=== PATIENT | female | born 1995 | race Caucasian/White ===

== ENCOUNTER 2016-05-20 18:55 | Emergency (ER) | payer OTHER ==
[~2016-05-20] VITALS: Ht 167.6 cm; Wt 101.0 kg
[~2016-05-20 18:55] MED LIST: ASCO100C2 PO; NRN600 PO; NRT75 PO
[2016-05-20 19:42] VITALS: TEMP 36.6; Ht 167.6 cm; Wt 101.0 kg
[2016-05-20] MEDS ORDERED: TRAMADOL HCL 50 MG TAB PO STA (20:05)
[2016-05-20] MEDS ORDERED: GABA-113 PO (20:16)
[2016-05-20] MEDS ORDERED: ZINC1CAP PO (20:18)
[2016-05-20] MEDS ORDERED: MELA1CAP10 PO (20:20)
--- NOTE | 2016-05-20 20:58 | DIAGNOSTIC IMAGING REPORT ---
RIGHT HIP UNILATERAL 2 VIEWS CLINICAL HISTORY: Right hip pain following fall. COMPARISON: None FINDINGS: Alignment of the right hip is anatomic. There is no acute fracture. Joint space is preserved. A few sclerotic foci within the right pelvis are likely benign. IMPRESSION: No acute fracture or dislocation of the right hip. Electronically signed by: See Varela M.D. 05/20/2016 8:57 PM Dictated Date/Time: 05/20/2016 8:57 PM
--- NOTE | 2016-05-20 21:00 | DIAGNOSTIC IMAGING REPORT ---
RIGHT FEMUR 2 VIEWS ROUTINE CLINICAL HISTORY: fall off horse; R hip to foot pain. COMPARISON: None FINDINGS: No acute fracture of the right femur is identified. There is a small right knee joint effusion. An intrauterine device within the pelvis is incidentally noted. IMPRESSION: 1. No acute fracture of the right femur. 2. Small right knee joint effusion. Electronically signed by: See Varela M.D. 05/20/2016 8:59 PM Dictated Date/Time: 05/20/2016 8:58 PM
--- NOTE | 2016-05-20 21:01 | DIAGNOSTIC IMAGING REPORT ---
RIGHT TIBIA/FIBULA 2 VIEWS ROUTINE CLINICAL HISTORY: Right lower extremity pain following fall. COMPARISON: None FINDINGS: There is no acute fracture of the right tibia or fibula. Alignment of the right knee and ankle is anatomic. IMPRESSION: No acute fracture of the right tibia or fibula. Electronically signed by: See Varela M.D. 05/20/2016 9:00 PM Dictated Date/Time: 05/20/2016 9:00 PM
--- NOTE | 2016-05-20 21:02 | DIAGNOSTIC IMAGING REPORT ---
RIGHT ANKLE MIN 3 VIEWS ROUTINE CLINICAL HISTORY: Right lower extremity pain following fall. COMPARISON: None FINDINGS: Alignment of the right ankle is anatomic. Talar dome is intact. There is no acute fracture. There is minimal plantar calcaneal spurring. IMPRESSION: No acute fracture or dislocation of the right ankle. Electronically signed by: See Varela M.D. 05/20/2016 9:01 PM Dictated Date/Time: 05/20/2016 9:00 PM
--- NOTE | 2016-05-20 21:02 | DIAGNOSTIC IMAGING REPORT ---
RIGHT KNEE 3 VIEWS CLINICAL HISTORY: Right lower extremity pain following fall. COMPARISON: None FINDINGS: Alignment of the right knee is anatomic. There is a small right knee joint effusion. No acute fracture is identified. IMPRESSION: 1. No acute fracture. 2. Small right knee joint effusion. Electronically signed by: See Varela M.D. 05/20/2016 9:01 PM Dictated Date/Time: 05/20/2016 8:59 PM
--- NOTE | 2016-05-20 21:03 | DIAGNOSTIC IMAGING REPORT ---
RIGHT FOOT MIN 3 VIEWS ROUTINE CLINICAL HISTORY: Right lower extremity pain following fall. COMPARISON: None FINDINGS: Alignment of the right foot is anatomic. The tarsometatarsal joints are intact. There is minimal plantar calcaneal spurring. There is no acute fracture within the right foot. IMPRESSION: No acute fracture or dislocation of the right foot. Electronically signed by: See Varela M.D. 05/20/2016 9:02 PM Dictated Date/Time: 05/20/2016 9:01 PM
[2016-05-20] MEDS ORDERED: TRAMADOL HCL 50 MG HOME PACK PO ONE (21:30)
[2016-05-20] MEDS ORDERED: TRAM-10 PO (21:31)
[2016-05-20 21:50] VITALS: BP 133/90; PULSE 100; O2SAT 99
--- NOTE | 2016-05-21 09:21 | EMERGENCY ROOM VISIT NOTE ---
ED Visit Note The pharmacy called 9:20 AM 05/21/16. The patient takes nortriptyline. She had been prescribed tramadol. There is an interaction of increased risk of serotonin syndrome and seizure. The tramadol prescription was canceled. Unfortunately, the patient does list allergies to oxycodone and codeine. At this time, I'm not comfortable prescribing a narcotic given her allergies. Additionally, the visit note from yesterday has not yet been completed for additional details. I recommended to the pharmacist that the patient return to the ER or she has any worsening or uncontrolled pain.
--- NOTE | 2016-05-21 21:12 | EMERGENCY ROOM VISIT NOTE ---
ED Visit Note First contact with patient: 19:51 Chief Complaint: Right knee pain. History of Present Illness: Ms. Whitfield is a 20-year-old white female who is brought into the ED via wheelchair accompanied by female friend complaining of right knee pain. Patient reports less than an hour ago she was taking a horse riding lesson and was attempting to jump over a barrier. She reports though horse stopped would not jump over the area barrier. She reports for was stuck in a stirrup and she fell off of work and twisted her right leg. She reports this that time she has been having severe pain in the right knee with paresthesias in the right toe. As I was assessing the patient she then reports that she was having pain throughout the entire right leg from her hip to her foot. She describes her overall sensation as a sharp discomfort and rates her discomfort 10/10. Her pain is nonradiating. All movements of the leg and palpation of the entire leg increases her discomfort. She has not had any medications for pain prior to arrival at the hospital. Associated with her pain she continues to report that she has paresthesias to the toes. She denies neck pain, back pain, left lower extremity pain, previous significant injuries or surgeries on any areas of the right lower extremity. Review of Systems: As noted above in history of present illness. Past Medical History: Asthma, GERD, gastric ulcers, status post granuloma removal. Current Medications: Melatonin, zinc, gabapentin, nortriptyline, vitamin C. Allergies to Medications: Oxycodone, codeine, IV contrast. Social History: Patient is currently employed; she lives with her parents and feels safe in her home environment; she denies tobacco use and admits to alcohol use. Physical Examination: Vital Signs: Date Time Temp Pulse Resp B/P Pulse Ox O2 Delivery O2 Flow Rate FiO2 05/20/16 21:50 100 18 133/90 99 05/20/16 19:42 36.6 102 18 131/89 98 Room Air GENERAL: 20-year-old female in mild to moderate distress due to pain, nontoxic- appearing, afebrile and hemodynamically stable. NEUROLOGICAL: Awake, alert and oriented to person, place and time. Answering questions appropriately and following commands. Good hand eye coordination. No focal motor or sensory deficits. SKIN: Warm, dry and pink. No soft tissue trauma noted. HEENT: Atraumatic and normocephalic. BACK: No tenderness over the bony thoracic or lumbar spine. No step-offs, swelling, bony crepitus or ecchymosis. No CVA tenderness. THORAX: Lungs sounds are clear to auscultation and equal bilaterally with symmetrical chest wall. ABDOMEN: Flat, soft and nontender. Positive bowel sounds in all quadrants. No guarding, rigidity or organomegaly. RIGHT LOWER EXTREMITY: No gross bony deformity. Initially on my examination patient had tenderness in the hip but not the pelvis, throughout the thigh, knee , lower leg, ankle or foot. I was not really able to assess her because she refused to allow me to touch her and would not move any of her joints. After pain medications and x-ray she did allow me to examine her leg and she had mild tenderness over the greater trochanter. There is no abnormal rotation or shortening of the extremity. She has tenderness over the mid femur without bony deformity, bony crepitus, swelling or ecchymosis. Diffuse tenderness throughout the knee. Decreased range of motion to approximately 90 of flexion but was able to fully extend her knee. There was moderate tenderness over the distal tibia but not fibula. She also had moderate tenderness over the medial and lateral epicondyles. She had no bony deformity, crepitus, swelling or ecchymosis. Distal pulses were intact. She was able to wiggle her toes and after her x-ray she was able to note me touching her toes. ED Course: Patient is assessed as noted above. Patient was given ice and 50 mg of Ultram by mouth for pain; she reported that she was allergic to codeine and oxycodone but then reported she has taken Percocet in the past and had no reaction. Her rash with these medications was hives so narcotics were held. Right Hip X-Ray: Was read by myself and the radiologist showing no acute fractures or dislocations. Right Femur X-Rays: Was read by myself and the radiologist showing no acute fractures. Right Knee X-Rays: Was read by myself and the radiologist showing no fractures or dislocations. Radiologist noted a small joint effusion. Right Tibia/Fibula X-Rays: Was read by myself and the radiologist showing no acute fractures. Right Ankle X-Rays: Was read by myself and the radiologist showing no acute fractures or dislocations. Right Foot X-Rays: Was read by myself and the radiologist showing no acute fractures or dislocations. Patient was placed in a knee immobilizer and a ankle gel splint; she was instructed on nonweight bearing crutch use. Patient was educated about tonight's findings and instructed on her treatment plan; she verbalizes understanding and agreement with this plan. Clinical Impression: Right lower leg pain. Disposition: Patient was discharged home in stable condition accompanied by female friends; prior to departure she was reassessed and subjectively reported she was feeling slightly better and rated her discomfort 9/10. Plan: Comfort measures were discussed with the patient including rest, ice, mobilizer/ ankle splint and nonweightbearing crutches use. Patient was placed on a sliding pain medication scale of ibuprofen, acetaminophen and Ultram. Patient was encouraged to follow-up with her primary care provider for recheck in 3-4 days. Patient was encouraged return the ED for worsening/uncontrolled pain, uncontrolled swelling, leg weakness/numbness/tingling or any new/concerning symptoms.
== END 2016-05-20 21:51 | disposition home or self-care (01) ==
LOC: C.EDB 18:56 → C.EDD 21:51
DX: M79.604 Pain in right leg (principal); K21.9 Gastro-esophageal reflux disease without esophagitis; J45.909 Unspecified asthma, uncomplicated; Z87.11 Personal history of peptic ulcer disease; Z79.899 Other long term (current) drug therapy; Z88.5 Allergy status to narcotic agent; Z91.041 Radiographic dye allergy status

== ENCOUNTER → 2017-03-05 | Outpatient (CLI) | payer OTHER ==
[~2017-03-05] MED LIST changes: +GABA-113 PO; +MELA1CAP10 PO; -NRN600 PO; +ZINC1CAP PO
--- NOTE | 2017-03-05 15:25 | DIAGNOSTIC IMAGING REPORT ---
ULTRASOUND R VENOUS DOPP LOWER EXT UNILAT CLINICAL HISTORY: Right leg pain and swelling COMPARISON STUDY: No previous studies for comparison. FINDINGS: Real-time and color flow Doppler imaging were performed. Flow was seen within the femoral, popliteal and calf veins with no intraluminal thrombus demonstrated. The saphenous vein is patent. IMPRESSION: No evidence of right lower extremity DVT. Electronically signed by: Aníbal Frazier M.D. 03/05/2017 3:24 PM Dictated Date/Time: 03/05/2017 3:24 PM
== END | disposition home or self-care (01) ==
LOC: C.ULTRBC 14:53
PROVIDERS: ATTEND Orthopaedic Surgery
DX: M79.604 Pain in right leg (principal)

== ENCOUNTER 2017-04-25 14:30 | Emergency (ER) | payer OTHER ==
[~2017-04-25] VITALS: Ht 167.6 cm; Wt 102.0 kg
[2017-04-25 14:31] VITALS: TEMP 37.1; Ht 167.6 cm; Wt 102.0 kg
[2017-04-25] MEDS ORDERED: ABL/15 PO (15:07)
[2017-04-25] MEDS ORDERED: PROPARACAINE HCL 0.5% OP SOLN 15 ML BTL OP STA (15:15)
[2017-04-25] MEDS ORDERED: PROPARACAINE HCL 0.5% OP SOLN 15 ML BTL ONE (15:18)
[2017-04-25] MEDS ORDERED: CIPR0.3S OP (15:46)
[2017-04-25] MEDS ORDERED: HYDR-5688 PO (15:46)
[2017-04-25 16:05] VITALS: BP 118/76; PULSE 93; O2SAT 99
--- NOTE | 2017-04-25 20:03 | EMERGENCY ROOM VISIT NOTE ---
ED Visit Note First contact with patient: 15:10 Chief Complaint: Right eye pain and watering. History of Present Illness: Ms. Whitfield is a 21-year-old white female who ambulates into the ED accompanied by male friend complaining of right eye pain and tearing. Historically patient denies any previous significant eye injury or diseases. She does wear contact lenses. Patient reports approximately 1.5 hours ago, after having her haircut, she started developing a burning sensation in the right eye. Since that time the pain has been constant. She rates her discomfort 8/10. The pain is nonradiating. Her pain worsens with exposure to bright light. She has not identified any alleviating factors related to the pain. She has not taken medications for pain prior to arrival at the hospital. Associated with her pain she has had light sensitivity and tearing of clear tears. She denies any foreign body sensation or recent trauma to the eye. Additionally she denies headache, visual changes, flashing lights, halos, double vision nausea, vomiting. Review of Systems: As noted above in history of present illness. 8 body systems were reviewed and found to be negative as noted above. Past Medical History: Asthma, gastric ulcers, status post right knee and nasal surgery. Current Medications: Nortriptyline, Neurontin, zinc, Abilify, vitamin C. Allergies to Medications: Codeine. Social History: Patient is currently employed; she feels safe in her home environment; she denies tobacco and alcohol use. Physical Examination: Vital Signs: Date Time Temp Pulse Resp B/P (MAP) Pulse Ox O2 Delivery O2 Flow Rate FiO2 04/25/17 16:05 93 16 118/76 99 04/25/17 14:31 37.1 93 16 118/76 99 Room Air GENERAL: 21-year-old female in mild to moderate distress due to pain, nontoxic- appearing, afebrile and hemodynamically stable. NEUROLOGICAL: Awake, alert and oriented to person, place and time. Answering questions appropriately and following commands. Normal gait. Good hand eye coordination. SKIN: Warm, dry and pink. No soft tissue eruptions or trauma noted. HEENT: Atraumatic and normocephalic. No foreign bodies were identified under the eyelids are embedded in the cornea. The anterior chamber is clear. Positive light sensitivity. PERRLA. EOMI without nystagmus. Sclera injected and conjunctiva pink with drainage of clear tears. Slit-lamp examination shows no foreign bodies. 2 corneal abrasions one at the 2 o'clock position and one at the 7 o'clock position. Visual acuity: Right 20/200 without contact lenses, Left 20/20 with contact lenses. ED Course: Patient is assessed as noted above. Patient's medication list was reviewed. Patient was offered pain medication and refused. 2 drops of Alcaine was used to anesthetize the right eye for examination. Prior to discharge to additional drops of Alcaine was used to anesthetize the eyes prior to discharge. Patient was educated about today's findings and instructed on her treatment plan ; she verbalized understanding and agreement with this plan. Clinical Impression: 2 left corneal abrasions. Decision-Making: Initially my differential diagnosis I considered corneal abrasion, foreign body, conjunctivitis, cellulitis and other causes. Disposition: Patient discharged home in stable condition accompanied by her boyfriend; prior to departure she was reassessed and subjectively reported she was feeling better. Plan: Patient was prescribed Ciloxan 2 drops every 4 hours while awake for 5 days. Cool compresses around the eye were discussed with the patient. Patient was placed on a sliding pain medication scale of ibuprofen, acetaminophen and Alborn; she was warned about appropriate narcotic use and precautions and her name was checked in the state database and no red flags were noted. Patient was encouraged not to use contacts for the next 10 days and then use a new pair of contacts at that time. Patient was encouraged to follow-up with ophthalmology or return to the ED in 36 -48 hours for recheck. Patient was encouraged to return the ED sooner for worsening/uncontrolled pain, headaches, visual changes, fevers, vomiting or any new/concerning symptoms.
== END 2017-04-25 16:05 | disposition home or self-care (01) ==
LOC: C.EDB 14:31 → C.EDD 16:05
DX: S05.02XA Injury of conjunctiva and corneal abrasion without foreign body, left eye, initial encounter (principal); X58.XXXA Exposure to other specified factors, initial encounter; Y92.9 Unspecified place or not applicable; J45.909 Unspecified asthma, uncomplicated; K25.9 Gastric ulcer, unspecified as acute or chronic, without hemorrhage or perforation; Z79.899 Other long term (current) drug therapy

== ENCOUNTER 2017-06-17 08:33 | Emergency (ER) | payer OTHER ==
[~2017-06-17] VITALS: Ht 167.6 cm; Wt 101.7 kg
[~2017-06-17 08:33] MED LIST changes: +ABL/15 PO; +HYDR-5688 PO; -MELA1CAP10 PO
[2017-06-17 08:37] VITALS: TEMP 36.8; Ht 167.6 cm; Wt 101.7 kg
[2017-06-17] MEDS ORDERED: ONDANSETRON 4MG OD TAB PO STA (08:48)
[2017-06-17] MEDS ORDERED: PSEU60TA80 PO (09:00)
--- NOTE | 2017-06-17 09:24 | EMERGENCY ROOM VISIT NOTE ---
History First contact with patient: 08:40 Chief Complaint: FLU LIKE SX Stated Complaint: COLD LIKE SYMPTOMS, THROWING UP History of Present Illness The patient is a 21 year old female who presents to the Emergency Room with complaints of "cold-like symptoms, throwing up". The patient states that she has had cold symptoms for a week to include a cough, but also stomach issues for 2 months. She states that every morning she feels as though she is going to vomit and then vomits. She then feels okay. She states that she did start a new job about 3 months ago. She also states that she has been coughing up some black mucus. She rates her overall discomfort as a 0/10. Review of Systems A complete 10-point Review of Systems was discussed with the patient, with pertinent positives and negatives listed in the History of Present Illness. All remaining Review of Systems questions can be considered negative unless otherwise specified. Past Medical/Surgical History Medical Problems: (1) Anxiety (2) Asthma (3) Chronic back pain (4) Depression (5) Migraines (6) Suicide attempt by drug ingestion Social History Problems: (1) Back pain (2) IUD (intrauterine device) in place Family History Hypertension Social History Smoking Status: Current Every Day Smoker Alcohol Use: none Drug Use: marijuana Marital Status: single Housing Status: lives with family Occupation Status: employed, student Current/Historical Medications Scheduled Aripiprazole (Abilify), 7.5 MG PO DAILY Ascorbic Acid (Vitamin C), 100 MG PO DAILY Gabapentin (Neurontin), 300 MG PO BID Nortriptyline HCl (Nortriptyline HCl), 150 MG PO HS Ondasetron Odt (Zofran Odt), 4 MG SL Q6H Pseudoephedrine-Guaifenesin (Mucinex D), 1 TAB PO BID Zinc Sulfate (Zinc Sulfate), Unknown Dose PO DAILY Physical Exam Vital Signs Date Time Temp Pulse Resp B/P (MAP) Pulse Ox O2 Delivery O2 Flow Rate FiO2 06/17/17 10:55 57 123/62 97 Room Air 06/17/17 08:37 36.8 60 18 135/88 97 Room Air Physical Exam VITAL SIGNS - Vital signs and nursing notes were reviewed. Stable. GENERAL - 21-year-old female appearing her stated age who is in no acute distress. Communicates well with provider and answers questions appropriately. SKIN - Without rashes. No meningeal or petechial rash. HEAD - NC/AT. EYES - PERRL with EOMI bilaterally. Sclera anicteric. EARS - No deformities of external structures noted on gross examination bilaterally. External auditory canals without discharge or otorrhea. Tympanic membranes pearly rangel without retraction or bulging. No fluid or purulent material visualized behind the TM. Handle of malleus, umbo, cone of light, pars tensa/flaccid all easily visualized. NOSE - Midline and without cyanosis. No epistaxis or purulent drainage noted. MOUTH/OROPHARYNX - Without perioral cyanosis. Buccal mucosa pink and moist and without leukoplakia. Tongue midline with equal elevation of palate bilaterally. No tonsillar hypertrophy, erythema, or exudates noted. Fair dentition noted. NECK - Neck with FROM. Supple to palpation. No lymphadenopathy noted. No nuchal rigidity. LUNGS - Chest wall symmetric without accessory muscle use, intercostals retractions, or central cyanosis. Normal vesicular breath sounds CTA B/L. No wheezes, rales, or rhonchi appreciated. CARDIAC - RRR with S1/S2. No murmur, rubs, or gallops appreciated. ABDOMEN - Abdominal contour normal without pulsations or visible masses. BS normoactive all four quadrants. No tenderness, palpable masses, hepatosplenomegaly, or ascites noted. EXTREMITIES - No clubbing or peripheral cyanosis. No pretibial edema present. +5 /5 strength noted in UE/LE bilaterally. NEUROLOGIC - Cranial nerves II through XII grossly intact. Sensory intact to light touch throughout. PSYCH - A&Ox3 and cooperates fully with examiner. Pt is very pleasant and interacts well with examiner. Medical Decision & Procedures ER Provider Diagnostic Interpretation: CHEST ONE VIEW PORTABLE CLINICAL HISTORY: cough, emesis COMPARISON STUDY: Chest radiograph March 26, 2015. FINDINGS: Lung volumes are normal. No pneumothorax or pleural effusion is noted. There is no consolidation or evidence for pulmonary edema. Cardiac size is normal. Mediastinal contours are normal. IMPRESSION: No acute cardiopulmonary findings. Electronically signed by: See Varela M.D. 06/17/2017 9:21 AM Dictated Date/Time: 06/17/2017 9:21 AM Laboratory Results 06/17/17 09:18 Red Blood Count 4.70, Mean Corpuscular Volume 85.7, Mean Corpuscular Hemoglobin 30.2, Mean Corpuscular Hemoglobin Concent 35.2, Mean Platelet Volume 9.3, Neutrophils (%) (Auto) 71.7, Lymphocytes (%) (Auto) 19.8, Monocytes (%) (Auto) 7.0, Eosinophils (%) (Auto) 1.0, Basophils (%) (Auto) 0.2, Neutrophils # (Auto) 6.42, Lymphocytes # (Auto) 1.78, Monocytes # (Auto) 0.63, Eosinophils # (Auto) 0.09, Basophils # (Auto) 0.02 06/17/17 09:18 Test 06/17/17 09:18 06/17/17 09:35 White Blood Count 8.97 K/uL (4.8-10.8) Red Blood Count 4.70 M/uL (4.2-5.4) Hemoglobin 14.2 g/dL (12.0-16.0) Hematocrit 40.3 % (37-47) Mean Corpuscular Volume 85.7 fL (80-100) Mean Corpuscular Hemoglobin 30.2 pg (25-34) Mean Corpuscular Hemoglobin Concent 35.2 g/dl (32-36) Platelet Count 272 K/uL (130-400) Mean Platelet Volume 9.3 fL (7.4-10.4) Neutrophils (%) (Auto) 71.7 % Lymphocytes (%) (Auto) 19.8 % Monocytes (%) (Auto) 7.0 % Eosinophils (%) (Auto) 1.0 % Basophils (%) (Auto) 0.2 % Neutrophils # (Auto) 6.42 K/uL (1.4-6.5) Lymphocytes # (Auto) 1.78 K/uL (1.2-3.4) Monocytes # (Auto) 0.63 K/uL (0.11-0.59) Eosinophils # (Auto) 0.09 K/uL (0-0.5) Basophils # (Auto) 0.02 K/uL (0-0.2) RDW Standard Deviation 38.4 fL (36.4-46.3) RDW Coefficient of Variation 12.1 % (11.5-14.5) Immature Granulocyte % (Auto) 0.3 % Immature Granulocyte # (Auto) 0.03 K/uL (0.00-0.02) Anion Gap 5.0 mmol/L (3-11) Est Creatinine Clear Calc Drug Dose 138.6 ml/min Estimated GFR () 128.1 Estimated GFR (Non- 110.6 BUN/Creatinine Ratio 14.1 (10-20) Calcium Level 9.4 mg/dl (8.5-10.1) Magnesium Level 2.2 mg/dl (1.8-2.4) Total Bilirubin 0.8 mg/dl (0.2-1) Aspartate Amino Transf (AST/SGOT) 9 U/L (15-37) Alanine Aminotransferase (ALT/SGPT) 20 U/L (12-78) Alkaline Phosphatase 103 U/L (45-117) Total Protein 7.8 gm/dl (6.4-8.2) Albumin 4.0 gm/dl (3.4-5.0) Globulin 3.8 gm/dl (2.5-4.0) Albumin/Globulin Ratio 1.1 (0.9-2) Urine Color DK YELLOW Urine Appearance CLEAR (CLEAR) Urine pH 5.5 (4.5-7.5) Urine Specific [place] 1.030 (1.000-1.030) Urine Protein NEG (NEG) Urine Glucose (UA) NEG (NEG) Urine Ketones NEG (NEG) Urine Occult Blood NEG (NEG) Urine Nitrite NEG (NEG) Urine Bilirubin NEG (NEG) Urine Urobilinogen NEG (NEG) Urine Leukocyte Esterase TRACE (NEG) Urine WBC (Auto) 1-5 /hpf (0-5) Urine RBC (Auto) 5-10 /hpf (0-4) Urine Hyaline Casts (Auto) 1-5 /lpf (0-5) Urine Epithelial Cells (Auto) >30 /lpf (0-5) Urine Bacteria (Auto) NEG (NEG) Urine Crystals TALC (NONE PRSENT) Urine Yeast (Auto) (NONE PRSENT) Urine Test NEG (NEG) Medications Administered Medications (Trade) Dose Ordered Sig/Mynor Route Start Time Stop Time Status Last Admin Dose Admin Ondansetron HCl (Zofran Odt) 4 mg NOW STAT PO 06/17/17 08:48 06/17/17 08:50 DC 06/17/17 09:27 4 MG Medical Decision Patient was seen and evaluated as above in room V8. Review was performed of nursing notes and vital signs. After obtaining a thorough history and physical examination the above work up was performed. She presents to us today with cold -like symptoms, emesis when she wakes up the morning 2 months and a cough that is productive of a blackish mucus. She is nontoxic on exam. Her vital signs are stable. I did elect to obtain baseline labs which there is no concerning abnormality. No leukocytosis, anemia, evidence of kidney or liver failure. Magnesium normal. Her urine does reveal trace leukocytes, however I favor this to be a contaminated sample with the amount of epithelial cells. Her urine test was negative. I did elect to obtain a chest x-ray because of the patient's production of sputum with the cough in the emesis. This was negative. I believe that she is experiencing likely a flulike illness that is causing her cough and upper respiratory symptoms, in regard to her emesis I question if this could be a component of stressors related to her new job. Regardless, I did inform her that a thorough workup would likely need to take place in the outpatient setting with the family doctor if the vomiting persisted. Nothing today was found on exam, or workup that suggested emergent process. She was educated upon worrisome symptoms which to return. For her vomiting she will be given a short course of Zofran however she was educated upon the risk of medication interaction with her other medicines. She is to discontinue and return with any change. The patient was educated upon management, had questions answered prior to discharge, and was discharged home in good condition. In the evaluation and treatment of this patient the following differential diagnoses were entertained: URI, pneumonia, PE, acute cholecystitis, pancreatitis, UTI, , among others. Impression Primary Impression: Vomiting Additional Impression: Influenza-like symptoms Departure Information Dispostion Home / Self-Care Condition GOOD Prescriptions Ondasetron Odt (ZOFRAN ODT) 4 Mg Tab 4 MG SL Q6H for Nausea, #12 TAB Prov: Paulino Sanchez PA-C 06/17/17 Referrals Anupam Montes M.D. (PCP) Patient Instructions My [facility] Additional Instructions You have been treated in the Emergency Department your vomiting. Laboratory results and imaging studies have ruled out any emergent causes for your abdominal pain which would warrant admission or surgery. You have been prescribed Zofran to be used for any nausea or vomiting. Take as prescribed. Again this can interact with the other medications and because what is called serotonin syndrome, be careful taking this. If you develop any fevers, new symptoms please stop and return. This is only for severe nausea causing vomiting. For pain control, you can use the following [id number] medicines (if >12 yo): - Regular strength (325mg/tab) Tylenol (acetaminophen) 2 tabs every 4-6 hours as needed. Do not exceed 12 tablets in a 24 hour period. Avoid taking more than 3 grams (3000 mg) of Tylenol per day. This includes any other sources of acetaminophen you may take on a regular basis. - Regular strength (200 mg/tab) Advil (ibuprofen) 1-2 tabs every 4-6 hours as needed. Do not exceed a dose of 3200 mg per day. Drink plenty of water and stay well hydrated. As with any trip to the Emergency Department, you should follow-up with your Primary Care Provider from today's visit. Return to the emergency department if your symptoms persist despite treatment plan outlined above or if the following symptoms occur: increased fevers, chills , worsening nausea/vomiting, blood in your stool or urine. Problem Qualifiers
[2017-06-17 09:28] LABS: BASO % 0.2 %; BASO ABS # 0.02 K/uL (0-0.2); EOS ABS # 0.09 K/uL (0-0.5); HEMATOCRIT 40.3 % (37-47); HEMOGLOBIN 14.2 g/dL (12.0-16.0); IG# 0.03 K/uL (0.00-0.02); LYMPH % 19.8 %; LYMPH ABS # 1.78 K/uL (1.2-3.4); MEAN CELL VOLUME 85.7 fL (80-100); MEAN CORPUSCULAR HEMOGLOBIN 30.2 pg (25-34); MEAN CORPUSCULAR HGB CONC 35.2 g/dl (32-36); MEAN PLATELET VOLUME 9.3 fL (7.4-10.4); MONO ABS # 0.63 K/uL (0.11-0.59); NEUT % 71.7 %; NEUT ABS # 6.42 K/uL (1.4-6.5); PLATELET COUNT 272 K/uL (130-400); RED CELL DISTRIBUTION WIDTH CV 12.1 % (11.5-14.5); RED CELL DISTRIBUTION WIDTH SD 38.4 fL (36.4-46.3); WHITE BLOOD COUNT 8.97 K/uL (4.8-10.8)
[2017-06-17 09:54] LABS: CALCIUM 9.4 mg/dl (8.5-10.1); CREATININE 0.76 mg/dl (0.60-1.20); POTASSIUM 3.9 mmol/L (3.5-5.1)
[2017-06-17 09:57] LABS: TOTAL PROTEIN 7.8 gm/dl (6.4-8.2)
[2017-06-17] MEDS ORDERED: ONDA4TAB10 SL (10:31)
[2017-06-17 10:55] VITALS: BP 123/62; PULSE 57; O2SAT 97
== END 2017-06-17 10:59 | disposition home or self-care (01) ==
LOC: C.EDB 08:34
DX: R11.10 Vomiting, unspecified (principal); R05 Cough; F41.9 Anxiety disorder, unspecified; F17.210 Nicotine dependence, cigarettes, uncomplicated; Z79.899 Other long term (current) drug therapy

== ENCOUNTER 2022-07-14 01:01 | Observation (INO) ==
[2022-07-14] MEDS ORDERED: OXYTOCIN 30 UNITS/500 ML BAG IV PRN (02:21)
[2022-07-14] MEDS ORDERED: LACTATED RINGER'S 1,000 ML IV PRN (02:21)
[2022-07-14 03:04] LABS: Hematocrit (blood only) 36.2 % (37.0-47.0); Hemoglobin 12.2 g/dl (12.0-16.0); Mean Corpuscular Hemoglobin 29.3 pg (25.0-34.0); Mean Corpuscular Hgb Conc 33.7 g/dL (32.0-36.0); Mean Corpuscular Volume 86.8 fL (80.0-100.0); Mean Platelet Volume 9.3 fL (9.4-12.4); Platelet Count 244 K/uL (130-400); RDW Coefficient of Variation 12.6 % (11.5-14.5); RDW Standard Deviation 39.7 fL (36.4-46.3); Red Blood Count 4.17 M/uL (4.20-5.40); White Blood Count 12.31 K/ul (4.8-10.8)
[2022-07-14] MEDS ORDERED: BETAMETH SOD PHOS/ACETATE IA 6 MG/ML ONE (03:08)
--- NOTE | 2022-07-14 12:44 | Progress Note ---
Date of Service July 14, 2022 Assessment & Plan (1) Preeclampsia: Plan: Late Note Entry pt is a 26yo at 30.2 days seen on L&D for bleedin on 07/13/22 PMH,PSH.Med and allergies reviewed with obstetric hx PE; SSE: No active v bleeding. no blood in vagina; vault. Cervix os closed and Not effaced reactive NST pt given BMTX #1 [place] [facility] [place] Admission and Anticipated Discharge Date Admission Date: July 14, 2022 Results & Data Vital Signs (Past 12 Hours) Vital Signs Temp Pulse Resp BP 07/14/22 01:37 36.8 C 18 07/14/22 01:22 36.8 C 93 H 18 137/78
--- NOTE | 2022-07-19 11:08 | Discharge Summary (DS) ---
DATE OF ADMISSION: 07/14/2022. DATE OF TRANSFER: 07/14/2022. HISTORY OF PRESENT ILLNESS: This is a 26-year-old G1, P0 at 30 weeks and 2 days on 07/14/2022 who wa s seen on labor and delivery for an episode of vaginal bleeding. The patient reported significant bl eeding at home and presented to labor and delivery. On arrival to bed in labor and delivery, she had very little bleeding, but she brought her clothing from her bleeding at home and was significant. S he was examined and given IV fluids and started on a dose of betamethasone. The patient had a known history of placenta previa. Once patient was stabilized, she was transferred to [facility] in [place]. PAST MEDICAL HISTORY: History of anxiety, asthma and depression as well as obesity. PAST SURGICAL HISTORY: None. SOCIAL HISTORY: Denies tobacco, drug or alcohol use. ALLERGIES: THE PATIENT IS ALLERGIC TO CODEINE AND IODINE. REVIEW OF SYSTEMS: Negative. PHYSICAL EXAMINATION: VITAL SIGNS: On 07/14/2022, vitals were as follows: Blood pressure 137/78, pulse 93, respirations 1 8, temperature 36.8. HEART: S1 and S2, regular rhythm and rate. LUNGS: Clear to auscultation bilaterally. ABDOMEN: Gravid. EXTREMITIES: No cyanosis, clubbing or edema. PELVIC: Very little bleeding seen. Minimal blood in the vagina. Cervix was closed. Bedside ultrasound shows cephalic presentation. CONDITION ON DISCHARGE: Stable. The patient has placenta bleeding, status post placenta previa. Th patient is transferred to [facility]. DISCHARGE DIAGNOSIS: Placenta previa with bleeding. PLAN ON DISCHARGE: The patient is transferred to [facility] in stable condition. Job ID: [id number]
== END 2022-07-14 04:15 | disposition short-term general hospital (02) | DRG 833 ==
LOC: OPB 01:01 → 4S1 01:03 → INTOOBSV 02:21 → 4S1 02:21